=== PATIENT | male | born 1995 | race African-American/Black ===

== ENCOUNTER 2018-12-22 16:39 | Emergency (ER) | payer SELFPAY ==
[~2018-12-22] VITALS: Ht 180.3 cm; Wt 80.0 kg
[2018-12-22 17:47] LABS: BASOPHILS % 0.5 % (0.0-2.0); EOSINOPHILS % 1.6 % (0.0-5.0); HEMATOCRIT. 42.7 % (42.0-52.0); HEMOGLOBIN. 14.3 g/dL (14.0-18.0); LYMPHOCYTES % 25.7 % (20.0-50.0); MEAN CORPUSCULAR VOLUME 89.5 fL (80.0-94.0); MEAN PLATELET VOLUME 8.6 fl (7.4-10.4); MONOCYTES % 10.5 % (2.0-8.0); NEUTROPHILS % 61.7 % (40.0-76.0); PLATELET 174 x1000/uL (130-400); RED BLOOD CELL COUNT 4.77 mill/uL (4.7-6.1)
[2018-12-22 17:58] LABS: CHLORIDE 103 mEq/L (98-107)
[2018-12-22 18:02] LABS: ETHANOL BLOOD < 10 mg/dL
[2018-12-22 20:45] LABS: *AMPHETAMINES SCREEN URINE NEGATIVE (NEGATIVE); *BARBITURATES SCREEN URINE NEGATIVE (NEGATIVE); *BENZODIAZEPINES SCREEN URINE NEGATIVE (NEGATIVE); *COCAINE SCREEN URINE NEGATIVE (NEGATIVE); METHADONE URINE SCREEN NEGATIVE (NEGATIVE); OPIATES URINE SCREEN NEGATIVE (NEGATIVE)
[2018-12-22 20:46] LABS: CANNABINOID URINE SCREEN PRESUMTIVE POSITIVE (NEGATIVE); PHENCYCLIDINE URINE SCREEN NEGATIVE (NEGATIVE)
[2018-12-23 14:45] VITALS: BP 122/68
== END 2018-12-23 15:26 | disposition home or self-care (01) ==
LOC: ER 16:39
DX: Z04.89 Encounter for examination and observation for other specified reasons (principal); M79.671 Pain in right foot; F31.9 Bipolar disorder, unspecified; F12.10 Cannabis abuse, uncomplicated; Z59.0 Homelessness
CPT/HCPCS: 36415; 73630; 80048; 80305; 80307; 80320; 80329; 99284; G0480